=== PATIENT | female | born 1995 | race Caucasian/White ===

== ENCOUNTER → 2018-11-24 | Outpatient (CLI) | payer OTHER ==
[~2018-11-24] MED LIST: AMOXICILLIN500 M1 PO
[2018-11-24 15:52] LABS: HEMOGLOBIN 13.6 gm/dL (12.0-15.0); MCH 27.4 pg (26.0-34.0); MCHC 33.1 g/dL (28.0-37.0); MCV 82.9 fL (80.0-100.0); RBC 4.95 mil/uL (4.20-5.00); RDW-CV 14.6 % (10.5-14.5); WBC 8.1 thou/uL (4.0-11.0)
[2018-11-24 16:10] LABS: ALKALINE PHOSPHATASE 64 U/L (46-116); ANION GAP 7 mmol/L (7-16); BUN 5 mg/dL (7-18); CHLORIDE 104 mmol/L (98-107); CHOLESTEROL 242 mg/dL (<200); CO2 28 mmol/L (21-32); CREATININE 0.6 mg/dL (0.6-1.3); GLUCOSE 89 mg/dL (70-99); HDL CHOLESTEROL 49 mg/dL (>40); LDL CHOLESTEROL 170 mg/dL (<100); SERUM ASSESSMENT Clear; SGOT 17 U/L (15-37); SGPT 23 U/L (30-65); SODIUM 139 mmol/L (136-145); TC:HDL 4.9 Ratio (Not establshd); TOTAL BILIRUBIN 0.3 mg/dL (<0.1-1.0); TOTAL PROTEIN 8.1 g/dL (6.4-8.2); TRIGLYCERIDE 115 mg/dL (<150); VLDL 23 mg/dL (<40)
[2018-11-25 06:10] LABS: LDL (DIRECT) CHOL 177 mg/dL (0-99)
== END ==
LOC: M.LAB 14:41
PROVIDERS: Family Medicine
DX: Z00.00 Encounter for general adult medical examination without abnormal findings (principal)

== ENCOUNTER → 2019-05-27 | Outpatient (CLI) | payer OTHER ==
[2019-05-27 15:27] LABS: CHOLESTEROL 230 mg/dL (<200); HDL CHOLESTEROL 48 mg/dL (>40); LDL CHOLESTEROL 151 mg/dL (<100); SERUM ASSESSMENT Clear; TC:HDL 4.8 Ratio (Not establshd); TRIGLYCERIDE 155 mg/dL (<150); VLDL 31 mg/dL (<40)
== END ==
LOC: M.LAB 15:02
PROVIDERS: Family Medicine
DX: E78.2 Mixed hyperlipidemia (principal)